=== PATIENT | female | born 1940 | race Caucasian/White ===

== ENCOUNTER 2019-06-17 14:33 | Emergency (ER) | payer MEDICARE, MEDICAID ==
[~2019-06-17] VITALS: Ht 170 cm; Wt 88.7 kg
[~2019-06-17 14:33] MED LIST: AC325T PO; ACET-461 PO; ALPR0.254 PO; ALPR0.5T72; AML2.5T PO; BPR150TCR PO; BUPR200T PO; BUPR200T2 PO; CALC-656 PO; CALC-80; CALCIUM 600MG PO; CIPR500T4 PO; CITALOPRAM HBR; CLCX200C; CYAN100053 IJ; CYAN100053 IM; DARI15TA4; EST45C VG; FOLI1TAB24 PO; FRS325T; GENT5DRO3 OD; HYDR-3714 PO; KCL20TCR PO; LACT1CAP62 PO; LEVO25TA3 PO; LEVO75TA6 PO; LISI20TA; LOSA25TA15 PO; LOVA10TA; Losartan Potassium PO; MELO15TA14; METH10TA12 PO; METO-333 PO; METO25TA PO; METO25TA2 PO; MIRT15TA6 PO; MIRT30TA6 PO; NF-LOVAZAC; NITR100C PO; OMEG1CAP PO; OMEP1CAP10; OMEP20CA12 PO; OMEP20TA2 PO; PNT40TEC PO; POTA10CA16; PRV20T PO; QTP25T PO; QUET25TA33 PO; QUET50TA21 PO; RIVA1PAT TOP; SCR1T1; SCR1T1 PO; SIMV10TA3 PO; SIMV20TA3 PO; SUCR1TAB PO; TRAM50TA2; TRIM100T7 PO; TRZ100T PO; ZOLP10TA
--- NOTE | 2019-06-17 15:01 | ED General ---
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 REPORTS BUMPED INTO STAFF AND FELL. STAFF REPORT POLICY TO HAVE HER CHECKED Nursing Sepsis Screen: No Definite Risk History of Present Illness Date Seen by Provider: Jun 17, 2019 Time Seen by Provider: 14:50 Initial Comments 78-year-old female is a resident at [facility], staff report that she ran into an employee, causing her to fall. She was not a hard impact. She did however hit a walker and possibly the wall with her head. She has a history of dementia. The fall was witnessed and there was no loss of consciousness. She has no complaints at this time, no areas of pain or tenderness, and is ambulatory with a steady gait. She is hard of hearing. The staff does report this is her second fall in the last 2 weeks, and a requesting a UA to check for urinary tract infection. Timing/Duration: 1-3 Hours Associated Systoms: Denies Symptoms Allergies and Home Medications Allergies Coded Allergies: codeine (Unverified Allergy, Mild, 10/05/08) Sulfa (Sulfonamide Antibiotics) (Unverified Allergy, Unknown, 01/16/14) Home Medications Acetaminophen 500 Mg Tablet, 500-1,000 MG PO EVERY 4-6 HOURS PRN for PAIN, (Reported) Bupropion Hcl 200 Mg Tablet.sa, 200 MG PO BID, (Reported) Ciprofloxacin HCl 500 Mg Tablet, 500 MG PO BID Prescribed by: ANJU REID on 06/17/19 1602 Cyanocobalamin 1,000 Mcg/Ml Vial, 1,000 MCG IM MONTHLY, (Reported) Estrogens Conjugated 45 Gm Cr, 1 APPFUL VG MON, WED, FRI, (Reported) Lactobacillus Acidophilus 1 Each Capsule, 1 CAP PO DAILY, (Reported) Levothyroxine Sodium 75 Mcg Tablet, 75 MCG PO DAILY, (Reported) Losartan Potassium 25 Mg Tablet, 25 MG PO HS, (Reported) Metoprolol Tartrate 25 Mg Tablet, 37.5 MG PO 00, 1999, (Reported) TAKES 1 & 1/2 (25MG) TABLET TWICE DAILY Mirtazapine 30 Mg Tablet, 30 MG PO HS, (Reported) Nitrofurantoin Macrocrystal 100 Mg Capsule, 100 MG PO DAILY, (Reported) Pantoprazole Sodium 40 Mg Tablet.dr, 1 TAB PO DAILY Prescribed by: ELOY ALVAREZ on 01/28/14 1158 Potassium Chloride 20 Meq Tab.prt.sr, 20 MEQ PO DAILY, (Reported) Quetiapine Fumarate 50 Mg Tablet, 50 MG PO HS, (Reported) Quetiapine Fumarate 25 Mg Tablet, 37.5 MG PO 0800, 1400, (Reported) TAKES 1 & 1/2 (25MG) TABLET TWICE DAILY AT 0800 AND 1400 Rivastigmine Tartrate 4.6 Mg Patch, 4.6 MG TOP DAILY, (Reported) Simvastatin 10 Mg Tablet, 10 MG PO HS, (Reported) Sucralfate 1 Gm Tab, 1 GM PO QID Prescribed by: ELOY ALVAREZ on 01/28/14 1158 [Calcium 600MG] , 600 MG PO DAILY, (Reported) Patient Home Medication List Home Medication List Reviewed: Yes Review of Systems Review of Systems Constitutional: no symptoms reported, see HPI Musculoskeletal: no symptoms reported, see HPI All Other Systems Reviewed Negative Unless Noted: Yes Past Hgctuoo-Lkbuvl-Xmbxtv Hx Past Med/Social Hx: Reviewed Nursing Past Med/Soc Hx Patient Social History Alcohol Use: Denies Use Recreational Drug Use: Yes (tobacco) Smoking Status: Former Smoker 2nd Hand Smoke Exposure: No Recent Foreign Travel: No Contact w/Someone Who Travel: No Recent Infectious Disease Expo: No Immunizations Up To Date Tetanus Booster (TDap): Unknown Date of Influenza Vaccine: May 17, 2013 Past Medical History Surgeries: Yes (EGD/COLONOSCOPIES, BACK SURG;splenectomy) Respiratory: No Cardiac: Yes Neurological: No Reproductive Disorders: Yes Female Reproductive Disorders: Denies Sexually Transmitted Disease: No HIV/AIDS: No Bladder Infection Gastrointestinal: Yes Colitis, Gastroesophageal Reflux, Gall Bladder Disease Musculoskeletal: Yes (CHRONIC GENERALIZED PAIN) Arthritis, Back Injury, Chronic Back Pain Endocrine: Yes Hypothyroidsim Loss of Vision: Bilateral Hearing Impairment: Hard of Hearing Cancer: No Psychosocial: Yes Sleep Difficulties, Anxiety, Bipolar, Depression Integumentary: No Blood Disorders: No Adverse Reaction/Blood Tranf: No Family Medical History Alcoholism 19 FATHER G8 BROTHER CANC 19 MOTHER FH: cancer Hypertension Physical Exam Vital Signs Vital Signs - First Documented 06/17/19 14:39 Temp 36.9 Pulse 93 Resp 18 B/P (MAP) 141/79 (99) Pulse Ox 97 Capillary Refill : NONE Height, Weight, BMI Height: 5'4.00" Weight: 166lbs. 9.0oz. 75.659386kd; 30.00 BMI Method: General Appearance: No Apparent Distress, WD/WN Eyes: Bilateral Eye Normal Inspection, Bilateral Eye PERRL, Bilateral Eye EOMI HEENT: PERRL/EOMI, TMs Normal, Normal ENT Inspection, Pharynx Normal, Other (head is normocephalic with no areas of tenderness, swelling, abrasions or lacerations.) Neck: Full Range of Motion, Normal Inspection, Non Tender, Supple Respiratory: Chest Non Tender, Lungs Clear, Normal Breath Sounds Cardiovascular: Regular Rate, Rhythm, No Edema, No Murmur, Normal Peripheral Pulses Genital/Rectal: Other (steady gait) Back: Normal Inspection, No CVA Tenderness, No Vertebral Tenderness Extremity: Normal Capillary Refill, Normal Inspection, Normal Range of Motion Neurologic/Psychiatric: Alert, Oriented x3, No Motor/Sensory Deficits, Normal Mood/Affect Skin: Normal Color, Warm/Dry Progress/Results/Core Measures Suspected Sepsis Recent Fever Within 48 Hours: No Infection Criteria Present: None New/Unexplained Altered Menta: No Sepsis Screen: No Definite Risk SIRS Temperature: Pulse: 93 Respiratory Rate: 18 Blood Pressure 141 /79 Mean: 99 Results/Orders Lab Results Laboratory Tests Test 06/17/19 15:20 Range/Units Urine Color YELLOW Urine Clarity SL CLOUDY Urine pH 6.0 5-9 Urine Specific [place] >=1.030 1.016-1.022 Urine Protein TRACE NEGATIVE Urine Glucose (UA) NEGATIVE NEGATIVE Urine Ketones NEGATIVE NEGATIVE Urine Nitrite POSITIVE NEGATIVE Urine Bilirubin NEGATIVE NEGATIVE Urine Urobilinogen 0.2 < = 1.0 MG/DL Urine Leukocyte Esterase 2+ H NEGATIVE Urine RBC (Auto) 3+ H NEGATIVE Urine RBC 5-10 H /HPF Urine WBC >100 H /HPF Urine Crystals NONE /LPF Urine Bacteria MODERATE H /HPF Urine Casts NONE /LPF Urine Mucus NEGATIVE /LPF Urine Culture Indicated YES My Orders Orders - ANJU REID Ua Culture If Indicated (06/17/19 15:02) Urine Culture (06/17/19 15:20) Vital Signs/I&O 06/17/19 06/17/19 14:39 16:06 Temp 36.9 36.9 Pulse 93 93 Resp 18 18 B/P (MAP) 141/79 (99) 141/79 (99) Pulse Ox 97 97 Capillary Refill : NONE Blood Pressure Mean: 99 Progress Note : Time: 14:50 Progress Note Patient seen and evaluated, no indication for diagnostic imaging at this time. We'll obtain a UA. Denies need for pain medication. 1600 UA results reviewed with the patient and her caregiver. Discharge instructions and return precautions reviewed. Departure Impression Primary Impression: Fall Qualified Codes: W19.XXXA - Unspecified fall, initial encounter Additional Impression: UTI (urinary tract infection) Qualified Codes: N30.01 - Acute cystitis with hematuria Disposition: HOME, SELF-CARE Condition: Improved Departure-Patient Inst. Decision time for Depature: 16:00 Referrals: SUSAN MOTLEY MD (PCP/Family) Primary Care Physician Patient Instructions: Preventing Falls in the Older Adult, Urinary Tract Infection, Adult (DC) Add. Discharge Instructions: Increase water intake, 16 ounces every 2 hours while awake. Take prescribed antibiotics as directed. Follow-up with your primary care provider if symptoms are not improving or worsen. Drink 1 cup of cranberry juice or eat 1 cup of fresh blueberries daily. Return to emergency department for new, urgent health care needs. All discharge instructions reviewed with patient and/or family. Voiced understanding. Scripts Ciprofloxacin HCl (Ciprofloxacin HCl) 500 Mg Tablet 500 MG PO BID, #10 TAB 0 Refills Prov: ANJU REID 06/17/19 Copy Copies To 1: SUASN MOTLEY MD, AMY ARNP Jun 17, 2019 15:01
[2019-06-17 15:30] LABS: BILIRUBIN,URINE NEGATIVE (NEGATIVE); CLARITY,URINE SL CLOUDY; COLOR,URINE YELLOW; GLUCOSE, URINE (UA) NEGATIVE (NEGATIVE); KETONES,URINE NEGATIVE (NEGATIVE); LEUKOCYTE ESTERASE ,URINE 2+ (NEGATIVE); NITRITE,URINE POSITIVE (NEGATIVE); PROTEIN,URINE TRACE (NEGATIVE)
[2019-06-17 15:56] LABS: WBC,URINE >100 /HPF
[2019-06-17 15:57] LABS: BACTERIA,URINE MODERATE /HPF
[2019-06-17] MEDS ORDERED: CIPR500T4 PO (16:02)
[2019-06-17 16:06] VITALS: BP 141/79
[2019-06-21] MEDS ORDERED: CALC600T12 PO (11:08)
[2019-06-21] MEDS ORDERED: LOSA25TA41 PO (11:08)
[2019-06-21] MEDS ORDERED: MEMA28CA PO (11:08)
[2019-06-21] MEDS ORDERED: OMEP20CA13 PO (11:08)
[2019-06-21] MEDS ORDERED: SUCR1TAB36 PO (11:08)
[2019-06-21] MEDS ORDERED: ACET-168 PO (11:08)
[2019-06-21] MEDS ORDERED: CHOL5000 PO (11:08)
[2019-06-21] MEDS ORDERED: SIMV10TA3 PO (11:08)
[2019-06-21] MEDS ORDERED: TRIM100T PO (11:08)
[2019-06-21] MEDS ORDERED: QUET25TA73 PO ×2 (11:08)
[2019-06-21] MEDS ORDERED: MIRT15TA6 PO (11:08)
[2019-06-21] MEDS ORDERED: FLUV100T3 PO (11:08)
[2019-06-21] MEDS ORDERED: LEVO88TA54 PO (11:08)
[2019-06-21] MEDS ORDERED: METO-333 PO (11:08)
[2019-06-21] MEDS ORDERED: CNC1KV IM (11:08)
[2019-06-21] MEDS ORDERED: ACID1TAB PO (11:08)
[2019-06-21] MEDS ORDERED: CYAN100015 SL (11:08)
[2019-06-21] MEDS ORDERED: BUPR200T2 PO (11:08)
[2019-06-21] MEDS ORDERED: CIPR-225 PO (11:08)
[2019-06-21] MEDS ORDERED: POTA20TA15 PO (11:08)
[2019-06-21] MEDS ORDERED: FLUV50TA3 PO (11:08)
[2019-06-22] MEDS ORDERED: ACID1TAB PO (08:57)
[2019-06-22] MEDS ORDERED: TRIM100T PO (08:57)
[2019-06-22] MEDS ORDERED: AMOX-358 PO (08:57)
== END 2019-06-17 16:06 | disposition home or self-care (01) ==
LOC: EDUNIT# 14:33 → ER 14:34
DX: N39.0 Urinary tract infection, site not specified (principal); F03.90 Unspecified dementia, unspecified severity, without behavioral disturbance, psychotic disturbance, mood disturbance, and anxiety; K21.9 Gastro-esophageal reflux disease without esophagitis; E03.9 Hypothyroidism, unspecified; F41.9 Anxiety disorder, unspecified; F31.9 Bipolar disorder, unspecified; Z87.891 Personal history of nicotine dependence; Z88.5 Allergy status to narcotic agent; Z88.2 Allergy status to sulfonamides; Z82.49 Family history of ischemic heart disease and other diseases of the circulatory system; W01.10XA Fall on same level from slipping, tripping and stumbling with subsequent striking against unspecified object, initial encounter
CPT/HCPCS: 81000; 87077; 87088; 87186; 99282

== ENCOUNTER 2019-07-22 13:07 | Emergency (ER) | payer MEDICARE, MEDICAID ==
[~2019-07-22] VITALS: Ht 165 cm; Wt 80.0 kg
[~2019-07-22 13:07] MED LIST changes: +ACET-168 PO; +ACID1TAB PO; +AMOX-358 PO; +CALC600T12 PO; +CHOL5000 PO; +CIPR-225 PO; +CNC1KV IM; +CYAN100015 SL; +FLUV100T3 PO; +FLUV50TA3 PO; +LEVO88TA54 PO; +LOSA25TA41 PO; +MEMA28CA PO; +OMEP-280 PO; +POTA20TA15 PO; +QUET25TA73 PO; +SIMV10TA26 PO; +SUCR1TAB36 PO; +TRIM100T PO
[2019-07-22 13:27] LABS: BASOPHILS % (AUTO) 0 % (0-10); EOSINOPHILS # (AUTO) 0.1 10^3/uL (0.0-0.3); EOSINOPHILS % (AUTO) 2 % (0-10); HEMATOCRIT 38 % (35-52); HEMOGLOBIN 11.4 G/DL (11.5-16.0); LYMPHOCYTES # (AUTO) 1.4 X 10^3 (1.0-4.0); LYMPHOCYTES % (AUTO) 19 % (12-44); MEAN CORPUSCULAR HEMOGLOBIN 27 PG (25-34); MEAN CORPUSCULAR HGB CONC 30 G/DL (32-36); MEAN CORPUSCULAR VOLUME 88 FL (80-99); MEAN PLATELET VOLUME 9.8 FL (7.4-10.4); MONOCYTES # (AUTO) 0.4 X 10^3 (0.0-1.0); MONOCYTES % (AUTO) 6 % (0-12); NEUTROPHILS # (AUTO) 5.5 X 10^3 (1.8-7.8); NEUTROPHILS % (AUTO) 74 % (42-75); PLATELET COUNT 260 10^3/uL (130-400); RED CELL DISTRIBUTION WIDTH 15.2 % (10.0-14.5); WHITE BLOOD COUNT 7.5 10^3/uL (4.3-11.0)
--- NOTE | 2019-07-22 13:28 | ED Trauma-Multisystem ---
General Chief Complaint: Trauma-Non Activation Stated Complaint: FALL Source of Information: Patient, EMS Exam Limitations: No Limitations History of Present Illness Date Seen by Provider: Jul 22, 2019 Time Seen by Provider: 13:14 Initial Comments 79-year-old female who was brought to the emergency room by [facility] with reported increased falls over the past 5 days and increased confusion. The patient has a baseline of dementia which is the cause of her needing penitentiary care 24 7. She is altered at baseline. She is alert to person and place on arrival to the emergency room. She denies any pain from her falls. snf staff reports that she was started on Cefdnir a few days ago for urinary tract infection. She has some dried blood on her report lips staff is concerned that she struck her head with her fall this morning. She also has a large hematoma to her right hip area from a recent fall and abrasions to the dorsal surface of her left hand. Loss of Consciousness: Unsure Associated Symptoms (Fall): Denies Symptoms Allergies and Home Medications Allergies Coded Allergies: codeine (Unverified Allergy, Mild, 10/05/08) Sulfa (Sulfonamide Antibiotics) (Unverified Allergy, Unknown, 01/16/14) Home Medications Acetaminophen 500 Mg Tablet, 500-1,000 MG PO EVERY 4-6 HOURS PRN for PAIN-MILD (1-4), (Reported) Amoxicillin/Potassium Clav 1 Each Tablet, 1 EACH PO BID Prescribed by: SUSAN LANGSTON on 06/22/19 0857 Bupropion HCl 200 Mg Tablet.er, 200 MG PO BID, (Reported) Calcium Carbonate 600 Mg Tablet, 600 MG PO DAILY, (Reported) Cholecalciferol (Vitamin D3) 5,000 Unit Capsule, 5,000 UNIT PO DAILY, (Reported) Cyanocobalamin 1,000 Mcg/Ml Inj, 1,000 MCG IM MONTHLY ON THE , (Reported) Cyanocobalamin (Vitamin B-12) 1,000 Mcg Tab.subl, 1,000 MCG SL DAILY, (Reported) Fluvoxamine Maleate 100 Mg Tablet, 100 MG PO DAILY, (Reported) Fluvoxamine Maleate 50 Mg Tablet, 50 MG PO HS, (Reported) L. Acidophilus/Bulgaricus 1 Each Tablet, 1 TAB PO UD THREE TIMES DAILY X 1 WEEK THEN DAILY THEREAFTER Prescribed by: SUSAN LANGSTON on 06/22/19 0857 Levothyroxine Sodium 88 Mcg Tablet, 88 MCG PO DAILY, (Reported) Losartan Potassium 25 Mg Tablet, 25 MG PO HS, (Reported) Memantine HCl 28 Mg Cap.spr.24, 28 MG PO DAILY, (Reported) Metoprolol Tartrate 25 Mg Tablet, 37.5 MG PO BID, (Reported) TAKES 1 & 1/2 (25MG) TABLETS Mirtazapine 15 Mg Tablet, 15 MG PO HS, (Reported) Omeprazole 20 Mg Capsule.dr, 20 MG PO HS, (Reported) Potassium Chloride 20 Meq Tab.er.prt, 20 MEQ PO DAILY, (Reported) Quetiapine Fumarate 25 Mg Tablet, 25 MG PO HS, (Reported) Quetiapine Fumarate 25 Mg Tablet, 12.5 MG PO 0800,1400, (Reported) TAKES 1/2 (25MG) TABLET Simvastatin 10 Mg Tablet, 10 MG PO HS, (Reported) Sucralfate 1 Gm Tablet, 1 GM PO UD PRN for STOMACH UPSET, (Reported) Trimethoprim 100 Mg Tablet, 100 MG PO DAILY DO NOT RESTART UNTIL 06/28/2019 Prescribed by: SUSAN LANGSTON on 06/22/19 0857 Patient Home Medication List Home Medication List Reviewed: Yes Review of Systems Review of Systems Constitutional: see HPI; No chills, No fever Musculoskeletal: see HPI, other (recent fall) Psychiatric/Neurological: See HPI, Other (increased confusion) All Other Systems Reviewed Negative Unless Noted: Yes Past Leojtvq-Pdmidk-Impzme Hx Past Med/Social Hx: Reviewed Nursing Past Med/Soc Hx Patient Social History Type Used: Cigarettes 2nd Hand Smoke Exposure: No Recent Hopitalizations: No Immunizations Up To Date Tetanus Booster (TDap): Unknown Date of Influenza Vaccine: Mar 16, 2019 Seasonal Allergies Seasonal Allergies: Yes Past Medical History Surgeries: Yes (EGD/COLONOSCOPIES, BACK SURG;splenectomy) Breast, Gallbladder, Hysterectomy, Orthopedic Respiratory: No Cardiac: Yes Neurological: No Reproductive Disorders: Yes Female Reproductive Disorders: Denies Sexually Transmitted Disease: No HIV/AIDS: No Bladder Infection Gastrointestinal: Yes Colitis, Gastroesophageal Reflux, Gall Bladder Disease Musculoskeletal: Yes (CHRONIC GENERALIZED PAIN) Arthritis, Back Injury, Chronic Back Pain Endocrine: Yes Hypothyroidsim Loss of Vision: Bilateral Hearing Impairment: Hard of Hearing Cancer: No Psychosocial: Yes Sleep Difficulties, Anxiety, Bipolar, Depression Integumentary: No Blood Disorders: No Adverse Reaction/Blood Tranf: No Family Medical History Reviewed Nursing Family Hx Alcoholism 19 FATHER G8 BROTHER CANC 19 MOTHER FH: cancer Cancer, Hypertension Physical Exam Vital Signs Vital Signs - First Documented 07/22/19 13:26 Temp 37.1 Pulse 84 Resp 20 B/P (MAP) 144/78 (100) Pulse Ox 94 Height, Weight, BMI Height: 5'4.00" Weight: 166lbs. 9.0oz. 75.888004sp; 32.32 BMI Method: General Appearance: No Apparent Distress, WD/WN Head: Ecchymosis (large area of ecchymosis and hematoma to her right hip.), Other (abrasions to the dorsal surface of her left hand) Ears, Nose, Throat: No Evidence of ENT Injury, No Dental Injury, Other (hard of hearing) Neck: Full Range of Motion, Normal Inspection, Non Tender, Supple Cardiovascular: Regular Rate, Rhythm, No Edema, No Gallop, No JVD, No Murmur, Normal Peripheral Pulses Respiratory: Chest Non Tender, Lungs Clear, Normal Breath Sounds, No Accessory Muscle Use, No Respiratory Distress Gastrointestinal: Normal Bowel Sounds, No Organomegaly, No Pulsatile Mass, Non Tender, Soft Extremity: Normal Capillary Refill Neurologic/Psychiatric: Alert, Normal Mood/Affect, Other (baseline of dementia) Skin: Normal Color, Warm/Dry [place] Coma Score Best Eye Response (Abebe): (4) Open Spontaneously Best Verbal Response (Abebe): (5) Oriented Best Motor Response (Abebe): (6) Obeys Commands Progress/Results/Core Measures Results/Orders Lab Results Laboratory Tests Test 07/22/19 13:09 07/22/19 13:15 07/22/19 15:35 Range/Units Lab Scanned Report Referred Lab Report [id number] White Blood Count 7.5 4.3-11.0 10^3/uL Red Blood Count 4.30 L 4.35-5.85 10^6/uL Hemoglobin 11.4 L 11.5-16.0 G/DL Hematocrit 38 35-52 % Mean Corpuscular Volume 88 80-99 FL Mean Corpuscular Hemoglobin 27 25-34 PG Mean Corpuscular Hemoglobin Concent 30 L 32-36 G/DL Red Cell Distribution Width 15.2 H 10.0-14.5 % Platelet Count 260 130-400 10^3/uL Mean Platelet Volume 9.8 7.4-10.4 FL Neutrophils (%) (Auto) 74 42-75 % Lymphocytes (%) (Auto) 19 12-44 % Monocytes (%) (Auto) 6 0-12 % Eosinophils (%) (Auto) 2 0-10 % Basophils (%) (Auto) 0 0-10 % Neutrophils # (Auto) 5.5 1.8-7.8 X 10^3 Lymphocytes # (Auto) 1.4 1.0-4.0 X 10^3 Monocytes # (Auto) 0.4 0.0-1.0 X 10^3 Eosinophils # (Auto) 0.1 0.0-0.3 10^3/uL Basophils # (Auto) 0.0 0.0-0.1 10^3/uL Sodium Level 142 135-145 MMOL/L Potassium Level 5.0 3.6-5.0 MMOL/L Chloride Level 110 H 98-107 MMOL/L Carbon Dioxide Level 23 21-32 MMOL/L Anion Gap 9 5-14 MMOL/L Blood Urea Nitrogen 31 H 7-18 MG/DL Creatinine 2.24 H 0.60-1.30 MG/DL Estimat Glomerular Filtration Rate 21 BUN/Creatinine Ratio 14 Glucose Level 123 H 70-105 MG/DL Calcium Level 9.3 8.5-10.1 MG/DL Corrected Calcium 9.5 8.5-10.1 MG/DL Total Bilirubin 0.5 0.1-1.0 MG/DL Aspartate Amino Transf (AST/SGOT) 11 5-34 U/L Alanine Aminotransferase (ALT/SGPT) 10 0-55 U/L Alkaline Phosphatase 132 40-136 U/L Total Protein 7.0 6.4-8.2 GM/DL Albumin 3.8 3.2-4.5 GM/DL Urine Color YELLOW Urine Clarity CLOUDY Urine pH 5.5 5-9 Urine Specific [place] >=1.030 1.016-1.022 Urine Protein NEGATIVE NEGATIVE Urine Glucose (UA) NEGATIVE NEGATIVE Urine Ketones NEGATIVE NEGATIVE Urine Nitrite NEGATIVE NEGATIVE Urine Bilirubin NEGATIVE NEGATIVE Urine Urobilinogen 0.2 < = 1.0 MG/DL Urine Leukocyte Esterase 2+ H NEGATIVE Urine RBC (Auto) TRACE-I NEGATIVE Urine RBC 2-5 H /HPF Urine WBC TNTC H /HPF Urine Squamous Epithelial Cells 10-25 H /HPF Urine Crystals NONE /LPF Urine Bacteria NEGATIVE /HPF Urine Casts NONE /LPF Urine Mucus NEGATIVE /LPF Urine Culture Indicated YES Micro Results Microbiology 07/22/19 Urine Culture - Final, Complete Gram Pos Mixed Bacterial Maite Corynebacterium JK(Jeikeium) My Orders Orders - MARILYN BAY Ct Head/Cervical Spine Wo (07/22/19 13:12) Chest 1 View, Ap/Pa Only (07/22/19 13:12) Pelvis With Right Hip 2-3views (07/22/19 13:12) Comprehensive Metabolic Panel (07/22/19 13:12) Ua Culture If Indicated (07/22/19 13:12) Ed Iv/Invasive Line Start (07/22/19 13:12) Cbc With Automated Diff (07/22/19 13:12) Ns Iv 1000 Ml (Sodium Chloride 0.9%) (07/22/19 15:00) Ct Chest Wo (07/22/19 16:14) Urine Culture (07/22/19 15:35) Vital Signs/I&O 07/22/19 07/22/19 13:26 17:55 Temp 37.1 37.1 Pulse 84 84 Resp 20 20 B/P (MAP) 144/78 (100) 144/78 (100) Pulse Ox 94 94 Progress Progress Note : Time: 17:17 Progress Note I have seen and evaluated the patient. Findings were discussed with patient family and penitentiary staff via phone. Patient has follow up with Dr. Liu tons office this week. Departure Impression Primary Impression: Advancing dementia Disposition: 01 HOME, SELF-CARE Condition: Stable/Unchanged Departure-Patient Inst. Decision time for Depature: 17:17 Referrals: SUSAN LANGSTON MD (PCP/Family) Primary Care Physician Patient Instructions: Dementia (DC) Add. Discharge Instructions: Continue medications as previously prescribed. Follow-up with Dr. Langston's office within 1 week for recheck. Return back to the emergency room for worsening symptoms or concerns as needed. All discharge instructions reviewed w [facility] patient and/or family. Voiced understanding. AMRILYN BAY Jul 22, 2019 13:28
[2019-07-22 13:49] LABS: ALBUMIN 3.8 GM/DL (3.2-4.5); BILIRUBIN,TOTAL 0.5 MG/DL (0.1-1.0); CALCIUM 9.3 MG/DL (8.5-10.1); CREATININE SERUM 2.24 MG/DL (0.60-1.30)
--- NOTE | 2019-07-22 14:39 | Diagnostic Imaging Report ---
PROCEDURE: CT head and CT cervical spine without contrast. TECHNIQUE: Multiple contiguous axial images were obtained through the brain and cervical spine without the use of intravenous contrast. Sagittal and coronal reformations through the cervical spine were then performed. Auto Exposure Controls were utilized during the CT exam to meet ALARA standards for radiation dose reduction. INDICATION: Unwitnessed fall. Scalp contusion. COMPARISON: 06/21/2019. FINDINGS: CT head: No large acute territorial ischemia, mass, or hemorrhage. No midline shift or mass effect. Decreased attenuation is seen in the periventricular and subcortical white matter. The ventricles and cortical sulci are prominent. The basilar cisterns are patent and unremarkable. The calvarium is intact. The visualized paranasal sinuses are clear. CT cervical spine: No acute fracture or dislocation is seen in the cervical spine. No focal osseous lesions. Vertebral body heights are well-maintained. The craniocervical junction is well-maintained. Hwumkffv-el-kxkfva degenerative changes are seen in the cervical spine with disc osteophyte complexes and uncovertebral arthropathy. Soft tissues of the neck are unremarkable. IMPRESSION: 1. No hemorrhage or focal intra-axial mass. No CT evidence of large acute territorial ischemia. 2. No acute fracture or dislocation in the cervical spine. 3. Chronic microvascular disease with generalized parenchymal volume loss. 4. Xecyicbk-wq-svzwkg degenerative changes in the cervical spine. Dictated by: Dictated on workstation # [id number]
--- NOTE | 2019-07-22 14:45 | Diagnostic Imaging Report ---
INDICATION: Unwitnessed fall earlier in the day. TECHNIQUE: AP pelvis along with 2 views right hip, 2:15 PM CORRELATION STUDY: None FINDINGS: The pelvis demonstrates no evidence for acute fracture. The pectineal lines and obturator rings are maintained. Pubic symphysis and SI joints are unremarkable. Posterior L4-L5 lumbar spinal fusion hardware. Bilateral hip joints demonstrate narrowing. Mildly prominent overhanging osteophytes bilaterally. Imaging of the right hip demonstrates the bony trabecular pattern to be intact. IMPRESSION: Negative for acute abnormality about the pelvis and/or right hip. Mild moderately advanced degenerative changes of both hips are present. . Dictated by: Dictated on workstation # [id number]
[2019-07-22] MEDS ORDERED: NS IV 1000 ML 1,000 ML IV SCH (15:00)
[2019-07-22 16:02] LABS: BILIRUBIN,URINE NEGATIVE (NEGATIVE); CLARITY,URINE CLOUDY; COLOR,URINE YELLOW; GLUCOSE, URINE (UA) NEGATIVE (NEGATIVE); KETONES,URINE NEGATIVE (NEGATIVE); LEUKOCYTE ESTERASE ,URINE 2+ (NEGATIVE); NITRITE,URINE NEGATIVE (NEGATIVE); PH,URINE 5.5 (5-9); PROTEIN,URINE NEGATIVE (NEGATIVE)
[2019-07-22 16:17] LABS: BACTERIA,URINE NEGATIVE /HPF; WBC,URINE TNTC /HPF
--- NOTE | 2019-07-22 16:53 | Diagnostic Imaging Report ---
INDICATION: Unwitnessed fall this morning. TECHNIQUE: Single-view chest at 02:11 p.m. CORRELATION STUDY: 06/22/2019. FINDINGS: Heart size and pulmonary vasculature are generally stable. Mediastinal configuration along the left superior margins does appear to be slightly more prominent from prior studies. Chronic-appearing changes about the lung parenchyma. Suggestion of some reparative change with likely a subacute left lateral fifth rib fracture. IMPRESSION: 1. Suggestion of prominence about the superior mediastinum. This may very well be owing to change in position; however, possibility of underlying mediastinal pathology including associated with the aortic arch not excluded. If clinically warranted, correlation with CT imaging chest would be recommended. 2. Likely subacute left lateral fifth rib fracture. Dictated by: Dictated on workstation # [id number]
--- NOTE | 2019-07-22 17:00 | Diagnostic Imaging Report ---
EXAMINATION: CT Chest without contrast. TECHNIQUE: Multiple contiguous axial images were obtained through the chest without the use of intravenous contrast. All CT scans use one or more of the following dose optimizing techniques: automated exposure control, MA and/or KvP adjustment based on a patient size and exam type, or iterative reconstruction. HISTORY: Fall. COMPARISON: None available. FINDINGS: There is no edema or pneumonia. No pleural effusion. No pneumothorax. No suspicious nodules. There is mild dependent atelectasis in the lungs. Heart size is normal. No pericardial effusion. Aorta is normal in caliber. There is no axillary or supraclavicular lymphadenopathy. There is no mediastinal lymphadenopathy. There are moderate coronary artery calcifications. Calcified granulomas are seen in the right hilum. Calcified granulomas are seen in the liver and spleen. Gallbladder is absent. There are svhcynsn-hb-dfdysav left third, fourth, and fifth rib fractures. There is a Schmorl's node in the inferior endplate of T12. IMPRESSION: 1. Subacute chronic left third, fourth, and fifth rib fractures without evidence for acute trauma in the chest. Dictated by: Dictated on workstation # [id number]
--- NOTE | 2019-07-22 17:40 | NUR ---
[facility] NOTIFIED OF DISCHARGE. THEY WILL BE SENDING TRANSPORT.
[2019-07-22 17:55] VITALS: BP 144/78
== END 2019-07-22 18:09 | disposition home or self-care (01) ==
LOC: EDUNIT# 13:07 → ER 13:09
DX: F03.90 Unspecified dementia, unspecified severity, without behavioral disturbance, psychotic disturbance, mood disturbance, and anxiety (principal); S70.01XA Contusion of right hip, initial encounter; S60.512A Abrasion of left hand, initial encounter; F41.9 Anxiety disorder, unspecified; F31.9 Bipolar disorder, unspecified; E03.9 Hypothyroidism, unspecified; K21.9 Gastro-esophageal reflux disease without esophagitis; R40.2142 Coma scale, eyes open, spontaneous, at arrival to emergency department; R40.2252 Coma scale, best verbal response, oriented, at arrival to emergency department; R40.2362 Coma scale, best motor response, obeys commands, at arrival to emergency department; Z88.5 Allergy status to narcotic agent; Z88.2 Allergy status to sulfonamides; Z82.49 Family history of ischemic heart disease and other diseases of the circulatory system; W19.XXXA Unspecified fall, initial encounter
CPT/HCPCS: 36415; 70450; 71045; 71250; 72125; 80053; 81000; 85025; 87088

== ENCOUNTER 2019-12-20 15:11 | Emergency (ER) | payer MEDICARE, MEDICAID ==
[~2019-12-20] VITALS: Ht 170 cm; Wt 82.0 kg
[~2019-12-20 15:11] MED LIST changes: -OMEP-280 PO; +OMEP20CA18 PO
--- NOTE | 2019-12-20 15:24 | ED General ---
General Stated Complaint: SYNCOPE EPISODE Source of Information: Patient Exam Limitations: No Limitations History of Present Illness Date Seen by Provider: Dec 20, 2019 Time Seen by Provider: 15:21 Initial Comments To ER by EMS from [facility] here in [place] with reports of an unresponsive episode at the halfway today lasting about 10 minutes. Upon EMS arrival she was alert and oriented with normal vital signs. On arrival to ER she states she doesn't have any pain nausea vomiting shortness of breath. She states she just feels "blah..up here" and points to her head. She reports that she is depressed and has been depressed for 20 years. She is not interested in going inpatient for any treatment for this. She is not homicidal or suicidal Timing/Duration: 1-3 Hours Severity: Moderate Associated Systoms: Denies Symptoms Allergies and Home Medications Allergies Coded Allergies: codeine (Unverified Allergy, Mild, 10/05/08) Sulfa (Sulfonamide Antibiotics) (Unverified Allergy, Unknown, 01/16/14) Home Medications Acetaminophen 500 Mg Tablet, 500-1,000 MG PO EVERY 4-6 HOURS PRN for PAIN-MILD (1-4), (Reported) Amoxicillin/Potassium Clav 1 Each Tablet, 1 EACH PO BID Prescribed by: SUSAN LANGSTON on 06/22/19 08 Bupropion HCl 200 Mg Tablet.er, 200 MG PO BID, (Reported) Calcium Carbonate 600 Mg Tablet, 600 MG PO DAILY, (Reported) Cefuroxime Axetil 500 Mg Tablet, 500 MG PO BID Prescribed by: ROSSI SINGLETON on 12/20/19 1553 Cholecalciferol (Vitamin D3) 5,000 Unit Capsule, 5,000 UNIT PO DAILY, (Reported) Cyanocobalamin 1,000 Mcg/Ml Inj, 1,000 MCG IM MONTHLY ON THE , (Reported) Cyanocobalamin (Vitamin B-12) 1,000 Mcg Tab.subl, 1,000 MCG SL DAILY, (Reported) Fluvoxamine Maleate 100 Mg Tablet, 100 MG PO DAILY, (Reported) Fluvoxamine Maleate 50 Mg Tablet, 50 MG PO HS, (Reported) L. Acidophilus/Bulgaricus 1 Each Tablet, 1 TAB PO UD THREE TIMES DAILY X 1 WEEK THEN DAILY THEREAFTER Prescribed by: SUSAN LANGSTON on 06/22/19 0857 Levothyroxine Sodium 88 Mcg Tablet, 88 MCG PO DAILY, (Reported) Losartan Potassium 25 Mg Tablet, 25 MG PO HS, (Reported) Memantine HCl 28 Mg Cap.spr.24, 28 MG PO DAILY, (Reported) Metoprolol Tartrate 25 Mg Tablet, 37.5 MG PO BID, (Reported) TAKES 1 & 1/2 (25MG) TABLETS Mirtazapine 15 Mg Tablet, 15 MG PO HS, (Reported) Omeprazole 20 Mg Capsule.dr, 20 MG PO HS, (Reported) Potassium Chloride 20 Meq Tab.er.prt, 20 MEQ PO DAILY, (Reported) Quetiapine Fumarate 25 Mg Tablet, 25 MG PO HS, (Reported) Quetiapine Fumarate 25 Mg Tablet, 12.5 MG PO 0800,1400, (Reported) TAKES 1/2 (25MG) TABLET Simvastatin 10 Mg Tablet, 10 MG PO HS, (Reported) Sucralfate 1 Gm Tablet, 1 GM PO UD PRN for STOMACH UPSET, (Reported) Trimethoprim 100 Mg Tablet, 100 MG PO DAILY DO NOT RESTART UNTIL 06/28/2019 Prescribed by: SUSAN LANGSTON on 06/22/19 0857 Patient Home Medication List Home Medication List Reviewed: Yes Review of Systems Review of Systems Constitutional: see HPI EENTM: see HPI Respiratory: no symptoms reported Cardiovascular: no symptoms reported Genitourinary: no symptoms reported Musculoskeletal: no symptoms reported Skin: no symptoms reported Psychiatric/Neurological: See HPI, Depressed Hematologic/Lymphatic: No Symptoms Reported Past Tmjlsmm-Camqts-Hzspsc Hx Patient Social History Type Used: Cigarettes 2nd Hand Smoke Exposure: No Recent Foreign Travel: No Contact w/Someone Who Travel: No Recent Hopitalizations: No Immunizations Up To Date Tetanus Booster (TDap): Unknown Date of Influenza Vaccine: Mar 16, 2019 Seasonal Allergies Seasonal Allergies: Yes Past Medical History Surgeries: Yes (EGD/COLONOSCOPIES, BACK SURG;splenectomy) Breast, Gallbladder, Hysterectomy, Orthopedic Respiratory: No Cardiac: Yes Neurological: No Reproductive Disorders: Yes Female Reproductive Disorders: Denies Sexually Transmitted Disease: No HIV/AIDS: No Bladder Infection Gastrointestinal: Yes Colitis, Gastroesophageal Reflux, Gall Bladder Disease Musculoskeletal: Yes (CHRONIC GENERALIZED PAIN) Arthritis, Back Injury, Chronic Back Pain Endocrine: Yes Hypothyroidsim Loss of Vision: Bilateral Hearing Impairment: Hard of Hearing Cancer: No Psychosocial: Yes Sleep Difficulties, Anxiety, Bipolar, Depression Integumentary: No Blood Disorders: No Adverse Reaction/Blood Tranf: No Family Medical History Alcoholism 19 FATHER G8 BROTHER CANC 19 MOTHER FH: cancer Cancer, Hypertension Physical Exam Vital Signs Vital Signs - First Documented 12/20/19 15:15 Temp 36.7 Pulse 83 Resp 18 B/P (MAP) 158/77 (104) Capillary Refill : Height, Weight, BMI Height: 5'4.00" Weight: 166lbs. 9.0oz. 75.719584ib; 29.00 BMI Method: General Appearance: No Apparent Distress, WD/WN, Other (alert and oriented, fl at affect) Eyes: Bilateral Eye Normal Inspection, Bilateral Eye PERRL HEENT: PERRL/EOMI, TMs Normal Respiratory: No Accessory Muscle Use, No Respiratory Distress Cardiovascular: Regular Rate, Rhythm, Normal Peripheral Pulses Gastrointestinal: Non Tender, Soft Neurologic/Psychiatric: Alert, Oriented x3 Skin: Normal Color, Warm/Dry Progress/Results/Core Measures Suspected Sepsis SIRS Temperature: Pulse: Respiratory Rate: Laboratory Tests 12/20/19 15:15: White Blood Count 9.2 Blood Pressure / Mean: Laboratory Tests 12/20/19 15:15: Creatinine 2.93H, Platelet Count 235, Total Bilirubin 0.2 Results/Orders Lab Results Laboratory Tests Test 12/20/19 15:15 12/20/19 15:20 Range/Units White Blood Count 9.2 4.3-11.0 10^3/uL Red Blood Count 4.67 4.35-5.85 10^6/uL Hemoglobin 12.5 11.5-16.0 G/DL Hematocrit 41 35-52 % Mean Corpuscular Volume 87 80-99 FL Mean Corpuscular Hemoglobin 27 25-34 PG Mean Corpuscular Hemoglobin Concent 31 L 32-36 G/DL Red Cell Distribution Width 15.2 H 10.0-14.5 % Platelet Count 235 130-400 10^3/uL Mean Platelet Volume 10.3 7.4-10.4 FL Neutrophils (%) (Auto) 58 42-75 % Lymphocytes (%) (Auto) 32 12-44 % Monocytes (%) (Auto) 7 0-12 % Eosinophils (%) (Auto) 3 0-10 % Basophils (%) (Auto) 0 0-10 % Neutrophils # (Auto) 5.3 1.8-7.8 X 10^3 Lymphocytes # (Auto) 3.0 1.0-4.0 X 10^3 Monocytes # (Auto) 0.6 0.0-1.0 X 10^3 Eosinophils # (Auto) 0.3 0.0-0.3 10^3/uL Basophils # (Auto) 0.0 0.0-0.1 10^3/uL Sodium Level 142 135-145 MMOL/L Potassium Level 4.7 3.6-5.0 MMOL/L Chloride Level 110 H 98-107 MMOL/L Carbon Dioxide Level 15 L 21-32 MMOL/L Anion Gap 17 H 5-14 MMOL/L Blood Urea Nitrogen 27 H 7-18 MG/DL Creatinine 2.93 H 0.60-1.30 MG/DL Estimat Glomerular Filtration Rate 16 BUN/Creatinine Ratio 9 Glucose Level 124 H 70-105 MG/DL Calcium Level 8.8 8.5-10.1 MG/DL Corrected Calcium 9.0 8.5-10.1 MG/DL Total Bilirubin 0.2 0.1-1.0 MG/DL Aspartate Amino Transf (AST/SGOT) 10 5-34 U/L Alanine Aminotransferase (ALT/SGPT) 8 0-55 U/L Alkaline Phosphatase 144 H 40-136 U/L Total Protein 6.9 6.4-8.2 GM/DL Albumin 3.8 3.2-4.5 GM/DL Thyroid Stimulating Hormone (TSH) 1.97 0.35-4.94 UIU/ML Urine Color YELLOW Urine Clarity CLOUDY Urine pH 6.0 5-9 Urine Specific [place] 1.025 H 1.016-1.022 Urine Protein NEGATIVE NEGATIVE Urine Glucose (UA) NEGATIVE NEGATIVE Urine Ketones NEGATIVE NEGATIVE Urine Nitrite NEGATIVE NEGATIVE Urine Bilirubin NEGATIVE NEGATIVE Urine Urobilinogen 0.2 < = 1.0 MG/DL Urine Leukocyte Esterase 3+ H NEGATIVE Urine RBC (Auto) TRACE-I NEGATIVE Urine RBC 2-5 H /HPF Urine WBC TNTC H /HPF Urine Squamous Epithelial Cells 0-2 /HPF Urine Renal Epithelial Cells 0-2 /HPF Urine Crystals NONE /LPF Urine Bacteria FEW H /HPF Urine Casts NONE /LPF Urine Mucus NEGATIVE /LPF Urine Yeast MODERATE H /HPF Urine Culture Indicated YES My Orders Orders - ROSSI SINGLETON BOBBIN WINDER Cbc With Automated Diff (12/20/19 15:18) Thyroid Stimulating Hormone (12/20/19 15:18) Free T4 (Free Thyroxine) (12/20/19 15:18) Comprehensive Metabolic Panel (12/20/19 15:18) Ua Culture If Indicated (12/20/19 15:18) Urine Culture (12/20/19 15:20) Ceftriaxone For Iv Use (Rocephin For I (12/20/19 16:00) Ns Iv 500 Ml (Sodium Chloride 0.9%) (12/20/19 16:15) Vital Signs/I&O 12/20/19 15:15 Temp 36.7 Pulse 83 Resp 18 B/P (MAP) 158/77 (104) Capillary Refill : Departure Impression Primary Impression: UTI (urinary tract infection) Qualified Codes: N39.0 - Urinary tract infection, site not specified Additional Impressions: Depression Qualified Codes: F32.9 - Major depressive disorder, single episode, unspecified REDD (acute kidney injury) Disposition: HOME, SELF-CARE Condition: Stable Departure-Patient Inst. Decision time for Depature: 15:52 Referrals: SUSAN LANGSTON MD (PCP/Family) Primary Care Physician Patient Instructions: Urinary Tract Infections in Adults Add. Discharge Instructions: Call dr Langston for an appointment for follow up. Antibiotics as directed. Return to ER for any worsening. Start the oral antibiotics tomorrow. Scripts Cefuroxime Axetil (Cefuroxime) 500 Mg Tablet 500 MG PO BID, #10 TAB Prov: ROSSI SINGLETON APRN 12/20/19 Copy Copies To 1: SUSAN LANGSTON MD, PETER J APRN Dec 20, 2019 15:23
[2019-12-20 15:34] LABS: BILIRUBIN,URINE NEGATIVE (NEGATIVE); CLARITY,URINE CLOUDY; COLOR,URINE YELLOW; GLUCOSE, URINE (UA) NEGATIVE (NEGATIVE); KETONES,URINE NEGATIVE (NEGATIVE); LEUKOCYTE ESTERASE ,URINE 3+ (NEGATIVE); NITRITE,URINE NEGATIVE (NEGATIVE); PROTEIN,URINE NEGATIVE (NEGATIVE)
[2019-12-20 15:34] LABS: BASOPHILS % (AUTO) 0 % (0-10); EOSINOPHILS # (AUTO) 0.3 10^3/uL (0.0-0.3); EOSINOPHILS % (AUTO) 3 % (0-10); HEMATOCRIT 41 % (35-52); HEMOGLOBIN 12.5 G/DL (11.5-16.0); LYMPHOCYTES % (AUTO) 32 % (12-44); MEAN CORPUSCULAR HEMOGLOBIN 27 PG (25-34); MEAN CORPUSCULAR HGB CONC 31 G/DL (32-36); MEAN CORPUSCULAR VOLUME 87 FL (80-99); MEAN PLATELET VOLUME 10.3 FL (7.4-10.4); MONOCYTES # (AUTO) 0.6 X 10^3 (0.0-1.0); MONOCYTES % (AUTO) 7 % (0-12); NEUTROPHILS # (AUTO) 5.3 X 10^3 (1.8-7.8); NEUTROPHILS % (AUTO) 58 % (42-75); PLATELET COUNT 235 10^3/uL (130-400); RED CELL DISTRIBUTION WIDTH 15.2 % (10.0-14.5); WHITE BLOOD COUNT 9.2 10^3/uL (4.3-11.0)
--- NOTE | 2019-12-20 15:36 | NUR ---
SEE LIST FOR CURRENT MEDS
[2019-12-20 15:45] LABS: ALBUMIN 3.8 GM/DL (3.2-4.5); POTASSIUM 4.7 MMOL/L (3.6-5.0)
[2019-12-20 15:46] LABS: BACTERIA,URINE FEW /HPF; WBC,URINE TNTC /HPF
[2019-12-20 15:46] LABS: CALCIUM 8.8 MG/DL (8.5-10.1)
[2019-12-20 15:47] LABS: TOTAL PROTEIN 6.9 GM/DL (6.4-8.2)
[2019-12-20 15:47] LABS: RENAL EPITHELIAL CELLS,URINE 0-2 /HPF; SQUAMOUS EPITHELIAL CELL,UR 0-2 /HPF; YEAST,URINE MODERATE /HPF
[2019-12-20 15:49] LABS: BILIRUBIN,TOTAL 0.2 MG/DL (0.1-1.0)
[2019-12-20 15:51] LABS: CREATININE SERUM 2.93 MG/DL (0.60-1.30)
[2019-12-20] MEDS ORDERED: CEFU500T63 PO (15:53)
[2019-12-20] MEDS ORDERED: cefTRIAXone FOR IV USE 1,000 MG in WATER (STERILE) FOR INJECTION 10 ML IV ONE (16:00)
[2019-12-20] MEDS ORDERED: NS IV 500 ML 500 ML IV SCH (16:15)
[2019-12-20 16:18] LABS: FREE T4 (FREE THYROXINE) 0.92 NG/DL (0.70-1.48)
[2019-12-20 16:57] VITALS: BP 143/80
--- NOTE | 2019-12-20 16:57 | NUR ---
CALLED [facility] TO TRANSPORT PT BACK TO FACILITY
--- NOTE | 2019-12-20 16:59 | NUR ---
FAMILY NOTIFIED OF PT RETURNING TO [facility]
[2019-12-20] MEDS ORDERED: ACETAMINOPHEN 325 MG TABLET PO ONE (17:30)
== END 2019-12-20 17:22 ==
LOC: EDUNIT# 15:11 → ER 15:13
DX: N39.0 Urinary tract infection, site not specified (principal); K52.9 Noninfective gastroenteritis and colitis, unspecified; K59.09 Other constipation; K21.9 Gastro-esophageal reflux disease without esophagitis; M19.90 Unspecified osteoarthritis, unspecified site; M54.9 Dorsalgia, unspecified; E03.9 Hypothyroidism, unspecified; F41.9 Anxiety disorder, unspecified; F31.9 Bipolar disorder, unspecified; Z79.890 Hormone replacement therapy; Z79.899 Other long term (current) drug therapy; Z90.81 Acquired absence of spleen; Z88.2 Allergy status to sulfonamides; Z88.5 Allergy status to narcotic agent
CPT/HCPCS: 36415; 80053; 81000; 84439; 84443; 85025; 87077; 87088; 87186; 93005

== ENCOUNTER 2020-07-03 10:28 | Emergency (ER) | payer MEDICARE, MEDICAID ==
[~2020-07-03] VITALS: Ht 167 cm; Wt 68.0 kg
[~2020-07-03 10:28] MED LIST changes: -CALC600T12 PO; +CEFU500T63 PO; +CLC600T PO
[2020-07-03 10:55] LABS: BASOPHILS % (AUTO) 0 % (0-10); EOSINOPHILS % (AUTO) 0 % (0-10); HEMATOCRIT 41 % (35-52); HEMOGLOBIN 12.8 g/dL (11.5-16.0); LYMPHOCYTES # (AUTO) 1.2 10^3/uL (1.0-4.0); LYMPHOCYTES % (AUTO) 9 % (12-44); MEAN CORPUSCULAR HEMOGLOBIN 28 pg (25-34); MEAN CORPUSCULAR HGB CONC 31 g/dL (32-36); MEAN CORPUSCULAR VOLUME 90 fL (80-99); MEAN PLATELET VOLUME 10.8 fL (9.0-12.2); MONOCYTES % (AUTO) 7 % (0-12); NEUTROPHILS # (AUTO) 11.4 10^3/uL (1.8-7.8); NEUTROPHILS % (AUTO) 83 % (42-75); PLATELET COUNT 252 10^3/uL (130-400); WHITE BLOOD COUNT 13.7 10^3/uL (4.3-11.0)
[2020-07-03 10:59] LABS: ALBUMIN 3.8 GM/DL (3.2-4.5)
[2020-07-03 11:00] LABS: POTASSIUM 5.3 MMOL/L (3.6-5.0)
[2020-07-03] MEDS ORDERED: NS IV 1000 ML 1,000 ML IV SCH (11:00)
[2020-07-03 11:01] LABS: CALCIUM 9.4 MG/DL (8.5-10.1)
[2020-07-03 11:02] LABS: TOTAL PROTEIN 6.9 GM/DL (6.4-8.2)
[2020-07-03 11:04] LABS: BILIRUBIN,TOTAL 0.5 MG/DL (0.1-1.0)
[2020-07-03 11:06] LABS: CREATININE SERUM 2.96 MG/DL (0.60-1.30)
[2020-07-03 11:09] LABS: MAGNESIUM 1.9 MG/DL (1.6-2.4)
[2020-07-03 11:18] LABS: BILIRUBIN,URINE NEGATIVE (NEGATIVE); CLARITY,URINE SL CLOUDY; COLOR,URINE YELLOW; GLUCOSE, URINE (UA) NEGATIVE (NEGATIVE); KETONES,URINE NEGATIVE (NEGATIVE); LEUKOCYTE ESTERASE ,URINE 1+ (NEGATIVE); NITRITE,URINE NEGATIVE (NEGATIVE); PH,URINE 5.5 (5-9); PROTEIN,URINE TRACE (NEGATIVE)
[2020-07-03 11:25] LABS: BACTERIA,URINE FEW /HPF; WBC,URINE >100 /HPF
[2020-07-03 11:30] LABS: FREE T4 (FREE THYROXINE) 1.29 NG/DL (0.70-1.48)
--- NOTE | 2020-07-03 12:47 | Diagnostic Imaging Report ---
PROCEDURE: CT head and CT cervical spine without contrast. TECHNIQUE: Multiple contiguous axial images were obtained through the brain and cervical spine without the use of intravenous contrast. Sagittal and coronal reformations through the cervical spine were then performed. Auto Exposure Controls were utilized during the CT exam to meet ALARA standards for radiation dose reduction. INDICATION: Increased confusion. Scalp contusion. Head and neck pain. COMPARISON: 07/22/2019. FINDINGS: CT head: No large acute territorial ischemia, mass, or hemorrhage. There is new chronic appearing subdural hematoma along the right convexity overlying the right frontal lobe. No midline shift or mass effect. Decreased attenuation is seen in the periventricular and subcortical white matter. The ventricles and cortical sulci are prominent. The basilar cisterns are patent and unremarkable. The calvarium is intact. The visualized paranasal sinuses are clear. CT cervical spine: No acute fracture or dislocation is seen in the cervical spine. No focal osseous lesions. There is reversal of the normal lordotic curvature centered at the C4-C5 level. Vertebral body heights are well-maintained. The craniocervical junction is well-maintained. Moderate to severe degenerative changes are seen in the cervical spine with disc osteophyte complexes and uncovertebral arthropathy. Soft tissues of the neck are unremarkable. IMPRESSION: 1. 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 No midline shift or mass effect. 2. No acute hemorrhage or focal intra-axial mass. No CT evidence of large acute territorial ischemia. 3. No acute fracture or dislocation in the cervical spine. 4. Generalized parenchymal volume loss with chronic microvascular disease. Dictated by: Dictated on workstation # [id number]
--- NOTE | 2020-07-03 13:39 | ED General ---
General Chief Complaint: Altered Mental Status Stated Complaint: UTI Nursing Triage Note: pt presents to ed from [facility] via ems for increased confusion, decreased appetite, and hallucinations. [facility] staff reports pt is currently on levaquin for UTI. Bruising noted to r upper forehead. Pt unsure if she had a recent fall. Nursing Sepsis Screen: No Definite Risk Source of Information: Patient, EMS, Residential Records History of Present Illness Date Seen by Provider: Jul 03, 2020 Time Seen by Provider: 10:30 Initial Comments This 79-year-old woman presents to the emergency room with confusion, decreased functionality, decreased appetite, and hallucinations. She is from [facility]. She is normally ambulatory with a walker but has not been able to ambulate with a walker today. She was recently diagnosed with urinary tract infection and was started on Levaquin. Urine culture results were reviewed by phone with Dr. Langston's office. She grew out Enterococcus and Aerococcus species. Patient also seems to be more tremulous than normal. On exam it is noted that she has old bruising to the right forehead. This reportedly was noticed a few days ago by staff but already appeared old at that time. No acute treatment was sought. Patient denies any pain or feeling ill in any way. She does state that this is "the end of life" for her. Allergies and Home Medications Allergies Coded Allergies: codeine (Unverified Allergy, Mild, 10/05/08) NSAIDS (Non-Steroidal Anti-Inflamma (Verified Allergy, Unknown, 07/03/20) Sulfa (Sulfonamide Antibiotics) (Unverified Allergy, Unknown, 01/16/14) sulfamethoxazole (Verified Allergy, Unknown, 07/03/20) trimethoprim (Verified Allergy, Unknown, 07/03/20) Uncoded Allergies: iv dye (Allergy, Unknown, 07/03/20) Home Medications Acetaminophen 500 Mg Tablet, 500-1,000 MG PO EVERY 4-6 HOURS PRN for PAIN-MILD (1-4), (Reported) Amoxicillin/Potassium Clav 1 Each Tablet, 1 EACH PO BID Prescribed by: SUSAN LANGSTON on 06/22/19 0857 Bupropion HCl 200 Mg Tablet.er, 200 MG PO BID, (Reported) Calcium Carbonate 600 Mg Tablet, 600 MG PO DAILY, (Reported) Cefuroxime Axetil 500 Mg Tablet, 500 MG PO BID Prescribed by: ROSSI SINGLETON on 12/20/19 1553 Cholecalciferol (Vitamin D3) 5,000 Unit Capsule, 5,000 UNIT PO DAILY, (Reported) Cyanocobalamin 1,000 Mcg/Ml Inj, 1,000 MCG IM MONTHLY ON THE , (Reported) Cyanocobalamin (Vitamin B-12) 1,000 Mcg Tab.subl, 1,000 MCG SL DAILY, (Reported) Fluvoxamine Maleate 100 Mg Tablet, 100 MG PO DAILY, (Reported) Fluvoxamine Maleate 50 Mg Tablet, 50 MG PO HS, (Reported) L. Acidophilus/Bulgaricus 1 Each Tablet, 1 TAB PO UD THREE TIMES DAILY X 1 WEEK THEN DAILY THEREAFTER Prescribed by: SUSAN LANGSTON on 06/22/19 0857 Levothyroxine Sodium 88 Mcg Tablet, 88 MCG PO DAILY, (Reported) Losartan Potassium 25 Mg Tablet, 25 MG PO HS, (Reported) Memantine HCl 28 Mg Cap.spr.24, 28 MG PO DAILY, (Reported) Metoprolol Tartrate 25 Mg Tablet, 37.5 MG PO BID, (Reported) TAKES 1 & 1/2 (25MG) TABLETS Mirtazapine 15 Mg Tablet, 15 MG PO HS, (Reported) Omeprazole 20 Mg Capsule.dr, 20 MG PO HS, (Reported) Potassium Chloride 20 Meq Tab.er.prt, 20 MEQ PO DAILY, (Reported) Quetiapine Fumarate 25 Mg Tablet, 25 MG PO HS, (Reported) Quetiapine Fumarate 25 Mg Tablet, 12.5 MG PO 0800,1400, (Reported) TAKES 1/2 (25MG) TABLET Simvastatin 10 Mg Tablet, 10 MG PO HS, (Reported) Sucralfate 1 Gm Tablet, 1 GM PO UD PRN for STOMACH UPSET, (Reported) Trimethoprim 100 Mg Tablet, 100 MG PO DAILY DO NOT RESTART UNTIL 06/28/2019 Prescribed by: SUSAN LANGSTON on 06/22/19 0857 Patient Home Medication List Home Medication List Reviewed: Yes Review of Systems Review of Systems Constitutional: no symptoms reported EENTM: no symptoms reported Respiratory: no symptoms reported Cardiovascular: no symptoms reported Gastrointestinal: no symptoms reported Genitourinary: see HPI : No Musculoskeletal: no symptoms reported Skin: see HPI Psychiatric/Neurological: See HPI Hematologic/Lymphatic: No Symptoms Reported Immunological/Allergic: no symptoms reported Past Bxljabm-Tzchyn-Ftdzqi Hx Past Med/Social Hx: Reviewed Nursing Past Med/Soc Hx Patient Social History Alcohol Use: Denies Use Smoking Status: Unknown if Ever Smoked Type Used: Cigarettes 2nd Hand Smoke Exposure: No Recent Infectious Disease Expo: No Recent Hopitalizations: No Immunizations Up To Date Tetanus Booster (TDap): Unknown Date of Influenza Vaccine: Mar 16, 2019 Seasonal Allergies Seasonal Allergies: Yes Past Medical History Surgeries: Yes (EGD/COLONOSCOPIES, BACK SURG;splenectomy) Breast, Gallbladder, Hysterectomy, Orthopedic Respiratory: No Cardiac: Yes High Cholesterol, Hypertension Neurological: No : No Reproductive Disorders: Yes Female Reproductive Disorders: Denies Sexually Transmitted Disease: No HIV/AIDS: No Genitourinary: Yes Bladder Infection Gastrointestinal: Yes Colitis, Gastroesophageal Reflux, Gall Bladder Disease Musculoskeletal: Yes (CHRONIC GENERALIZED PAIN) Arthritis, Back Injury, Chronic Back Pain Endocrine: Yes Hypothyroidsim Loss of Vision: Bilateral Hearing Impairment: Hard of Hearing Cancer: No Psychosocial: Yes Sleep Difficulties, Anxiety, Bipolar, Depression Integumentary: No Blood Disorders: No Adverse Reaction/Blood Tranf: No Family Medical History Alcoholism 19 FATHER G8 BROTHER CANC 19 MOTHER FH: cancer Cancer, Hypertension Physical Exam Vital Signs Vital Signs - First Documented 07/03/20 10:35 Temp 35.5 Pulse 83 Resp 16 B/P (MAP) 130/103 (112) Pulse Ox 94 Capillary Refill : Less Than 3 Seconds Height, Weight, BMI Height: 5'4.00" Weight: 166lbs. 9.0oz. 75.073215iu; 24.00 BMI Method: General Appearance: No Apparent Distress, WD/WN HEENT: PERRL/EOMI, Other (Facial bruising with raised contusion of the right forehead. 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 Norm as Tested, Other (Confused conversation) Skin: Normal Color, Warm/Dry, Ecchymosis Progress/Results/Core Measures Suspected Sepsis Recent Fever Within 48 Hours: No Infection Criteria Present: Documented Infection New/Unexplained Altered Menta: Yes Sepsis Screen: No Definite Risk SIRS Temperature: Pulse: 83 Respiratory Rate: 16 Laboratory Tests 07/03/20 10:32: White Blood Count 13.7H Blood Pressure 130 /103 Mean: 112 Laboratory Tests 07/03/20 10:32: Creatinine 2.96H, Platelet Count 252, Total Bilirubin 0.5 Results/Orders Lab Results Laboratory Tests Test 07/03/20 10:32 07/03/20 11:13 Range/Units White Blood Count 13.7 H 4.3-11.0 10^3/uL Red Blood Count 4.54 3.80-5.11 10^6/uL Hemoglobin 12.8 11.5-16.0 g/dL Hematocrit 41 35-52 % Mean Corpuscular Volume 90 80-99 fL Mean Corpuscular Hemoglobin 28 25-34 pg Mean Corpuscular Hemoglobin Concent 31 L 32-36 g/dL Red Cell Distribution Width 15.2 H 10.0-14.5 % Platelet Count 252 130-400 10^3/uL Mean Platelet Volume 10.8 9.0-12.2 fL Immature Granulocyte % (Auto) 1 % Neutrophils (%) (Auto) 83 H 42-75 % Lymphocytes (%) (Auto) 9 L 12-44 % Monocytes (%) (Auto) 7 0-12 % Eosinophils (%) (Auto) 0 0-10 % Basophils (%) (Auto) 0 0-10 % Neutrophils # (Auto) 11.4 H 1.8-7.8 10^3/uL Lymphocytes # (Auto) 1.2 1.0-4.0 10^3/uL Monocytes # (Auto) 1.0 0.0-1.0 10^3/uL Eosinophils # (Auto) 0.0 0.0-0.3 10^3/uL Basophils # (Auto) 0.0 0.0-0.1 10^3/uL Immature Granulocyte # (Auto) 0.1 0.0-0.1 10^3/uL Sodium Level 141 135-145 MMOL/L Potassium Level 5.3 H 3.6-5.0 MMOL/L Chloride Level 110 H 98-107 MMOL/L Carbon Dioxide Level 20 L 21-32 MMOL/L Anion Gap 11 5-14 MMOL/L Blood Urea Nitrogen 47 H 7-18 MG/DL Creatinine 2.96 H 0.60-1.30 MG/DL Estimat Glomerular Filtration Rate 15 BUN/Creatinine Ratio 16 Glucose Level 110 H 70-105 MG/DL Calcium Level 9.4 8.5-10.1 MG/DL Corrected Calcium 9.6 8.5-10.1 MG/DL Magnesium Level 1.9 1.6-2.4 MG/DL Total Bilirubin 0.5 0.1-1.0 MG/DL Aspartate Amino Transf (AST/SGOT) 16 5-34 U/L Alanine Aminotransferase (ALT/SGPT) 11 0-55 U/L Alkaline Phosphatase 125 40-136 U/L C-Reactive Protein High Sensitivity 1.26 H 0.00-0.50 MG/DL Total Protein 6.9 6.4-8.2 GM/DL Albumin 3.8 3.2-4.5 GM/DL Thyroid Stimulating Hormone (TSH) 1.66 0.35-4.94 UIU/ML Free Thyroxine 1.29 0.70-1.48 NG/DL Urine Color YELLOW Urine Clarity SL CLOUDY Urine pH 5.5 5-9 Urine Specific [place] >=1.030 1.016-1.022 Urine Protein TRACE H NEGATIVE Urine Glucose (UA) NEGATIVE NEGATIVE Urine Ketones NEGATIVE NEGATIVE Urine Nitrite NEGATIVE NEGATIVE Urine Bilirubin NEGATIVE NEGATIVE Urine Urobilinogen 0.2 < = 1.0 MG/DL Urine Leukocyte Esterase 1+ H NEGATIVE Urine RBC (Auto) NEGATIVE NEGATIVE Urine RBC NONE /HPF Urine WBC >100 H /HPF Urine Squamous Epithelial Cells 10-25 H /HPF Urine Crystals NONE /LPF Urine Bacteria FEW H /HPF Urine Casts NONE /LPF Urine Mucus NEGATIVE /LPF Urine Culture Indicated YES My Orders Orders - BENJY TIRADO MD Cbc With Automated Diff (07/03/20 10:48) Comprehensive Metabolic Panel (07/03/20 10:48) Hs C Reactive Protein (07/03/20 10:48) Magnesium (07/03/20 10:48) Ua Culture If Indicated (07/03/20 10:48) Thyroid Stimulating Hormone (07/03/20 10:48) Free T4 (Free Thyroxine) (07/03/20 10:48) Ed Iv/Invasive Line Start (07/03/20 10:48) Ns Iv 1000 Ml (Sodium Chloride 0.9%) (07/03/20 11:00) Ct Head/Cervical Spine Wo (07/03/20 10:52) Urine Culture (07/03/20 11:13) Ampicillin For Iv Use (Ampicillin For (07/03/20 13:45) Medications Given in ED Current Medications Medications Dose Ordered Sig/Shelli Route Start Time Stop Time Status Last Admin Dose Admin Ampicillin Sodium 2000 mg/Sterile Water 14.8 ml @ 60 mls/hr ONCE ONCE IV 07/03/20 13:45 07/03/20 13:59 DC 07/03/20 14:19 60 MLS/HR Vital Signs/I&O 07/03/20 10:35 Temp 35.5 Pulse 83 Resp 16 B/P (MAP) 130/103 (112) Pulse Ox 94 Capillary Refill : Less Than 3 Seconds Blood Pressure Mean: 112 Progress Note : Time: 14:28 Progress Note Patient still appears to have pyuria by urinalysis. CT of the head and C-spine demonstrated an old or stable subdural hematoma. This could correlate with her fall about a week ago. No interventions are necessary for this injury at this time. I discussed the situation with Dr. Langston. She would like to treat with ampicillin here in the ER based on culture results and follow that with an amoxicillin prescription that she will provide. Patient received a liter of IV normal saline. Diagnostic Imaging Diagonstic Imaging: CT Plain Films/CT/US/NM/MRI: c-spine, head Comments CT head and cervical spine viewed by me and report reviewed. See report below: NAME: HAY ANDREA [facility] REC#: [id number] PT STATUS: REG ER : 1940 PHYSICIAN: BENJY TIRADO MD ADMIT DATE: 07/03/20/ER Anabela gned Date of Exam:07/03/20 CT HEAD/CERVICAL SPINE WO PROCEDURE: CT head and CT cervical spine without contrast. TECHNIQUE: Multiple contiguous axial images were obtained through the brain and cervical spine without the use of intravenous contrast. Sagittal and coronal reformations through the cervical spine were then performed. Auto Exposure Controls were utilized during the CT exam to meet ALARA standards for radiation dose reduction. INDICATION: Increased confusion. Scalp contusion. Head and neck pain. COMPARISON: 07/22/2019. FINDINGS: CT head: No large acute territorial ischemia, mass, or hemorrhage. There is new chronic appearing subdural hematoma along the right convexity overlying the right frontal lobe. No midline shift or mass effect. Decreased attenuation is seen in the periventricular and subcortical white matter. The ventricles and cortical sulci are prominent. The basilar cisterns are patent and unremarkable. The calvarium is intact. The visualized paranasal sinuses are clear. CT cervical spine: No acute fracture or dislocation is seen in the cervical spine. No focal osseous lesions. There is reversal of the normal lordotic curvature centered at the C4-C5 level. Vertebral body heights are well-maintained. The craniocervical junction is well-maintained. Moderate to severe degenerative changes are seen in the cervical spine with disc osteophyte complexes and uncovertebral arthropathy. Soft tissues of the neck are unremarkable. IMPRESSION: 1. 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 No midline shift or mass effect. 2. No acute hemorrhage or focal intra-axial mass. No CT evidence of large acute territorial ischemia. 3. No acute fracture or dislocation in the cervical spine. 4. Generalized parenchymal volume loss with chronic microvascular disease. Dictated by: Dictated on workstation # [id number] Dict: 07/03/20 1239 Trans: 07/03/20 1251 [facility] [id number] Interpreted by: AMBROSIO LEOS DO Electronically signed by: AMBROSIO LEOS DO 07/03/20 1251 Departure Impression Primary Impression: Subdural hematoma Additional Impressions: Urinary tract infection Qualified Codes: N39.0 - Urinary tract infection, site not specified Altered mental status Qualified Codes: R41.82 - Altered mental status, unspecified Tremor Fall on same level Qualified Codes: W18.30XA - Fall on same level, unspecified, initial encounter Disposition: HOME, SELF-CARE Condition: Improved Departure-Patient Inst. Decision time for Depature: 14:01 Referrals: SUSAN LANGSTON MD (PCP/Family) Primary Care Physician Patient Instructions: Subdural Hematoma, Urinary Tract Infection, Adult (DC) Add. Discharge Instructions: See orders for new antibiotics from Dr. Langston. Stop Levaquin (levofloxacin). Assist patient with ambulation and transfers. Encourage plenty of clear liquids. All discharge instructions reviewed with patient and/or family. Voiced understanding. Copy Copies To 1: SUSAN LANGSTON MD, JOSHUA T MD Jul 03, 2020 13:38
[2020-07-03] MEDS ORDERED: AMPICILLIN FOR IV USE 2,000 MG in WATER (STERILE) FOR INJECTION 14.8 ML IV ONE (13:45)
--- NOTE | 2020-07-03 14:39 | NUR ---
pt daughter updated with pt progress and plan of care at this time.
--- NOTE | 2020-07-03 14:55 | NUR ---
[facility] notified of pt progress to discharge and plans made for arrangement of transport home.
[2020-07-03 15:14] VITALS: BP 126/75
== END 2020-07-03 15:14 | disposition home or self-care (01) ==
LOC: EDUNIT# 10:28 → ER 10:29
DX: S00.83XA Contusion of other part of head, initial encounter (principal); N39.0 Urinary tract infection, site not specified; R41.82 Altered mental status, unspecified; R25.1 Tremor, unspecified; I10 Essential (primary) hypertension; E03.9 Hypothyroidism, unspecified; E78.00 Pure hypercholesterolemia, unspecified; K21.9 Gastro-esophageal reflux disease without esophagitis; F31.9 Bipolar disorder, unspecified; Z88.2 Allergy status to sulfonamides; Z88.5 Allergy status to narcotic agent; Z88.6 Allergy status to analgesic agent; Z88.1 Allergy status to other antibiotic agents; Z91.041 Radiographic dye allergy status; Z80.9 Family history of malignant neoplasm, unspecified; Z82.49 Family history of ischemic heart disease and other diseases of the circulatory system; Z79.890 Hormone replacement therapy; W18.30XA Fall on same level, unspecified, initial encounter
CPT/HCPCS: 36415; 51701; 70450; 72125; 80053; 81000; 83735; 84439; 84443; 85025; 86141; 87088

== ENCOUNTER 2020-08-07 08:15 | Emergency (ER) | payer MEDICARE, MEDICAID ==
[~2020-08-07] VITALS: Ht 167 cm; Wt 68.0 kg
[~2020-08-07 08:15] MED LIST changes: +CIPR500T5 PO; +QUET25TA34 PO; -QUET25TA73 PO
--- NOTE | 2020-08-07 08:49 | ED Fall/Injury ---
General Chief Complaint: Trauma-Non Activation Stated Complaint: FELL Nursing Triage Note: UNWITNESSED FALL Source: patient, EMS Exam Limitations: clinical condition (Dementia, hard of hearing) History of Present Illness Date Seen by Provider: Aug 07, 2020 Time Seen by Provider: 08:15 Initial Comments Patient presents ER by EMS from assisted living with chief complaint that she had an unwitnessed fall and a laceration on her right index finger and large hematoma over her right eyebrow. Patient denies any pain. The patient is not on blood thinners. She is at baseline per nursing staff in terms of orientation. She is quite hard of hearing. She is denying any nausea shortness of breath cough fever. She is on treatment for a UTI presently. Allergies and Home Medications Allergies Coded Allergies: codeine (Unverified Allergy, Mild, 10/05/08) NSAIDS (Non-Steroidal Anti-Inflamma (Verified Allergy, Unknown, 07/03/20) Sulfa (Sulfonamide Antibiotics) (Unverified Allergy, Unknown, 01/16/14) sulfamethoxazole (Verified Allergy, Unknown, 07/03/20) trimethoprim (Verified Allergy, Unknown, 07/03/20) Uncoded Allergies: iv dye (Allergy, Unknown, 07/03/20) Home Medications Acetaminophen 500 Mg Tablet, 500-1,000 MG PO EVERY 4-6 HOURS PRN for PAIN-MILD (1-4), (Reported) Amoxicillin/Potassium Clav 1 Each Tablet, 1 EACH PO BID Prescribed by: SUSAN MOTLEY on 06/22/19 0857 Bupropion HCl 200 Mg Tablet.er, 200 MG PO BID, (Reported) Calcium Carbonate 600 Mg Tablet, 600 MG PO DAILY, (Reported) Cefuroxime Axetil 500 Mg Tablet, 500 MG PO BID Prescribed by: ROSSI SINGLETON on 12/20/19 1853 Cholecalciferol (Vitamin D3) 5,000 Unit Capsule, 5,000 UNIT PO DAILY, (Reported) Cyanocobalamin 1,000 Mcg/Ml Inj, 1,000 MCG IM MONTHLY ON THE , (Reported) Cyanocobalamin (Vitamin B-12) 1,000 Mcg Tab.subl, 1,000 MCG SL DAILY, (Reported) Fluvoxamine Maleate 100 Mg Tablet, 100 MG PO DAILY, (Reported) Fluvoxamine Maleate 50 Mg Tablet, 50 MG PO HS, (Reported) L. Acidophilus/Bulgaricus 1 Each Tablet, 1 TAB PO UD THREE TIMES DAILY X 1 WEEK THEN DAILY THEREAFTER Prescribed by: SUSAN MOTLEY on 06/22/19 0857 Levothyroxine Sodium 88 Mcg Tablet, 88 MCG PO DAILY, (Reported) Losartan Potassium 25 Mg Tablet, 25 MG PO HS, (Reported) Memantine HCl 28 Mg Cap.spr.24, 28 MG PO DAILY, (Reported) Metoprolol Tartrate 25 Mg Tablet, 37.5 MG PO BID, (Reported) TAKES 1 & 1/2 (25MG) TABLETS Mirtazapine 15 Mg Tablet, 15 MG PO HS, (Reported) Omeprazole 20 Mg Capsule.dr, 20 MG PO HS, (Reported) Potassium Chloride 20 Meq Tab.er.prt, 20 MEQ PO DAILY, (Reported) Quetiapine Fumarate 25 Mg Tablet, 25 MG PO HS, (Reported) Quetiapine Fumarate 25 Mg Tablet, 12.5 MG PO 0800,1400, (Reported) TAKES 1/2 (25MG) TABLET Simvastatin 10 Mg Tablet, 10 MG PO HS, (Reported) Sucralfate 1 Gm Tablet, 1 GM PO UD PRN for STOMACH UPSET, (Reported) Trimethoprim 100 Mg Tablet, 100 MG PO DAILY DO NOT RESTART UNTIL 06/28/2019 Prescribed by: SUSAN MOTLEY on 06/22/19 0857 Patient Home Medication List Home Medication List Reviewed: Yes Review of Systems Review of Systems Constitutional: No chills, No diaphoresis Eyes: Denies Blindness, Denies Blurred Vision Ears, Nose, Mouth, Throat: denies ear pain, denies ear discharge Respiratory: No cough, No short of breath Cardiovascular: No chest pain, No palpitations Gastrointestinal: No abdominal pain, No nausea, No vomiting Genitourinary: No discharge, No dysuria Musculoskeletal: see HPI Skin: see HPI All Other Systems Reviewed Negative Unless Noted: Yes Past Trprblo-Agbxbu-Kyxyfe Hx Patient Social History Alcohol Use: Denies Use Smoking Status: Current Everyday Smoker Type Used: Cigarettes 2nd Hand Smoke Exposure: No Recent Hopitalizations: No Immunizations Up To Date Tetanus Booster (TDap): Unknown Date of Influenza Vaccine: Mar 16, 2019 Seasonal Allergies Seasonal Allergies: Yes Past Medical History Surgeries: Yes (EGD/COLONOSCOPIES, BACK SURG;splenectomy) Breast, Gallbladder, Hysterectomy, Orthopedic Respiratory: No Cardiac: Yes High Cholesterol, Hypertension Neurological: No Reproductive Disorders: Yes Female Reproductive Disorders: Denies Sexually Transmitted Disease: No HIV/AIDS: No Genitourinary: Yes Bladder Infection Gastrointestinal: Yes Colitis, Gastroesophageal Reflux, Gall Bladder Disease Musculoskeletal: Yes (CHRONIC GENERALIZED PAIN) Arthritis, Back Injury, Chronic Back Pain Endocrine: Yes Hypothyroidsim Loss of Vision: Bilateral Hearing Impairment: Hard of Hearing Cancer: No Psychosocial: Yes Sleep Difficulties, Anxiety, Bipolar, Depression Integumentary: No Blood Disorders: No Adverse Reaction/Blood Tranf: No Family Medical History Alcoholism 19 FATHER G8 BROTHER CANC 19 MOTHER FH: cancer Cancer, Hypertension Physical Exam Vital Signs Vital Signs - First Documented 08/07/20 08:15 Temp 36.2 Pulse 81 Resp 20 B/P (MAP) 160/71 (100) Pulse Ox 94 O2 Delivery Room Air Capillary Refill : Height, Weight, BMI Height: 5'4.00" Weight: 166lbs. 9.0oz. 75.250590hx; 24.00 BMI Method: General Appearance: WD/WN, no apparent distress HEENT: PERRL/EOMI, pharynx normal Neck: full range of motion, normal inspection Cardiovascular: normal peripheral pulses, regular rate, rhythm Respiratory: lungs clear, normal breath sounds, no respiratory distress, no accessory muscle use Peripheral Pulses: 2+ Radial Pulses (R), 2+ Radial Pulses (L) Gastrointestinal: normal bowel sounds, non tender, soft Neurologic/Psychiatric: alert, normal mood/affect, other (Person and place but not time or situation) Skin: other (Large 5 cm long by 3 cm wide hematoma over the right eyebrow. Laceration on the index finger in a J shape approximately 3 cm long on the pad of the right index finger.) Abebe Coma Score Best Eye Response: (4) Open Spontaneously Best Verbal Response: (5) Oriented Best Motor Response: (6) Obeys Commands [place] Total: 15 Procedures/Interventions Wound Location: Upper Extremities Other Wound Location Right index finger pad distal phalanx Wound Length (cm): 3 Wound's Depth, Shape: linear (Curvilinear), sub Q Wound Explored: no foreign body removed Irrigated w/ Saline (ccs): 200 Betadine Prep?: Yes (Chlorhexidine) Anesthesia: 1% Lidocaine Volume Anesthetic (ccs): 5 Suture: Ethlion Suture Size: 5-0 Number of Sutures: 5 Sterile Dressing Applied?: Yes Progress Wound was cleaned thoroughly using chlorhexidine and sterile saline and flushed. In the usual fashion we applied a nerve block of the digit and applied another couple cc into the pad of the finger to obtain adequate analgesia. Wound edges were reapproximated and closed using 5 simple interrupted sutures. Patient tolerated the procedure very well. Progress/Results/Core Measures Results/Orders My Orders Orders - GILLIAN PHILLIPS Ct Head/Cervical Spine Wo (08/07/20 08:26) Vital Signs/I&O 08/07/20 08:15 Temp 36.2 Pulse 81 Resp 20 B/P (MAP) 160/71 (100) Pulse Ox 94 O2 Delivery Room Air Progress Progress Note : Time: 08:47 Progress Note Cleaned and repaired the finger laceration. CT of the head and C-spine were ordered. Plan to put her on cefdinir which would cover for infection of the finger as well as UTI. Diagnostic Imaging Diagonstic Imaging: CT Plain Films/CT/US/NM/MRI: c-spine, head Comments NAME: HAY ANDREA [facility] REC#: [id number] PT STATUS: REG ER : 1940 PHYSICIAN: GILLIAN PHILLIPS MD ADMIT DATE: 08/07/20/ER Draft Date of Exam:08/07/20 CT HEAD/CERVICAL SPINE WO PROCEDURE: CT head and CT cervical spine without contrast. TECHNIQUE: Multiple contiguous axial images were obtained through the brain and cervical spine without the use of intravenous contrast. Sagittal and coronal reformations through the cervical spine were then performed. Auto Exposure Controls were utilized during the CT exam to meet ALARA standards for radiation dose reduction. INDICATION: Trauma, unwitnessed fall with a hematoma to the right forehead. COMPARISON: Correlation is made with prior CT from 07/03/2020. FINDINGS: CT HEAD: Prominence of the ventricles and sulci is again noted, consistent with cerebral atrophy. The chronic-appearing subdural along the right frontal convexity appears smaller on today's study. No acute intra-axial or extra-axial hemorrhage is identified. Cisterns are patent. There is some mucosal thickening of the maxillary sinuses bilaterally as well as the sphenoid sinus and ethmoid air cells. There is a hematoma in the right frontal scalp. IMPRESSION: 1. Right frontal scalp hematoma. 2. No acute intracranial process is detected. The chronic-appearing subdural along the right frontal convexity on prior exam does appear to be smaller. CT CERVICAL SPINE: Alignment is normal. There appears to be partial osseous fusion between the C4-C5 as well as C5-C6 and C6-C7 vertebral bodies. There is severe multilevel degenerative disc disease with variable disc space narrowing and marginal spurring. There is multilevel facet arthropathy. Prevertebral tissues are within normal limits. Odontoid appears to be intact. IMPRESSION: Cervical spondylosis. No acute bony abnormality is detected. Dictated on workstation # [id number] Dict: 08/07/20 0915 Trans: 08/07/20 0931 [id number] [id number] Interpreted by: UMA RAMIREZ MD Electronically signed by: Reviewed: Reviewed by Me Departure Impression Primary Impression: Fall on same level Qualified Codes: W18.30XA - Fall on same level, unspecified, initial encounter Additional Impression: Finger laceration Qualified Codes: S61.210A - Laceration without foreign body of right index finger without damage to nail, initial encounter Disposition: 01 HOME, SELF-CARE Condition: Improved Departure-Patient Inst. Decision time for Depature: 09:38 Referrals: SUSAN MOTLEY MD (PCP/Family) Primary Care Physician Patient Instructions: HEMATOMA, Laceration Repair With [place] (DC), Laceration Repair With Stitches (DC) Add. Discharge Instructions: Ice pack for 20 minutes every 2 hours while awake for swelling and pain on the hematoma over her right eyebrow. Tylenol and/or ibuprofen as necessary for pain. Keep the finger clean with regular soap and water at least daily and apply a thin layer of Vaseline or triple antibiotic ointment and replace the dressing daily or more frequently as necessary. Have the sutures out in 10 to 14 days by the nurse or you may return to the ER to have this done at no additional charge. Cefdinir 1 capsule twice a day for the next 7 days to prevent infection. Probiotics 1 tablet twice a day for the next 7 days to prevent diarrhea. All discharge instructions reviewed with patient and/or family. Voiced understanding. Scripts Cefdinir (Cefdinir) 300 Mg Capsule 300 MG PO BID for 7 Days, #14 CAP 0 Refills Prov: GILLIAN PHILLIPS 08/07/20 L.acidoph & Paracasei,B.lactis (Probiotic) 1 Each Capsule 1 EACH PO BID for 7 Days, #14 CAP 0 Refills Prov: GILLIAN PHILLIPS 08/07/20 Copy Copies To 1: SUSAN MOTLEY MD, TITUS J Aug 07, 2020 08:48
--- NOTE | 2020-08-07 09:31 | Diagnostic Imaging Report ---
PROCEDURE: CT head and CT cervical spine without contrast. TECHNIQUE: Multiple contiguous axial images were obtained through the brain and cervical spine without the use of intravenous contrast. Sagittal and coronal reformations through the cervical spine were then performed. Auto Exposure Controls were utilized during the CT exam to meet ALARA standards for radiation dose reduction. INDICATION: Trauma, unwitnessed fall with a hematoma to the right forehead. COMPARISON: Correlation is made with prior CT from 07/03/2020. FINDINGS: CT HEAD: Prominence of the ventricles and sulci is again noted, consistent with cerebral atrophy. The chronic-appearing subdural along the right frontal convexity appears smaller on today's study. No acute intra-axial or extra-axial hemorrhage is identified. Cisterns are patent. There is some mucosal thickening of the maxillary sinuses bilaterally as well as the sphenoid sinus and ethmoid air cells. There is a hematoma in the right frontal scalp. IMPRESSION: 1. Right frontal scalp hematoma. 2. No acute intracranial process is detected. The chronic-appearing subdural along the right frontal convexity on prior exam does appear to be smaller. CT CERVICAL SPINE: Alignment is normal. There appears to be partial osseous fusion between the C4-C5 as well as C5-C6 and C6-C7 vertebral bodies. There is severe multilevel degenerative disc disease with variable disc space narrowing and marginal spurring. There is multilevel facet arthropathy. Prevertebral tissues are within normal limits. Odontoid appears to be intact. IMPRESSION: Cervical spondylosis. No acute bony abnormality is detected. Dictated by: Dictated on workstation # [id number]
[2020-08-07] MEDS ORDERED: CEFD300C3 PO (09:40)
[2020-08-07] MEDS ORDERED: L.AC1CAP6 PO (09:40)
[2020-08-07 10:19] VITALS: BP 124/65
== END 2020-08-07 10:19 | disposition home or self-care (01) ==
LOC: EDUNIT# 08:24 → ER 08:26
DX: S61.210A Laceration without foreign body of right index finger without damage to nail, initial encounter (principal); S00.11XA Contusion of right eyelid and periocular area, initial encounter; F41.9 Anxiety disorder, unspecified; I10 Essential (primary) hypertension; K21.9 Gastro-esophageal reflux disease without esophagitis; E78.00 Pure hypercholesterolemia, unspecified; E03.9 Hypothyroidism, unspecified; F31.9 Bipolar disorder, unspecified; R40.2410 Glasgow coma scale score 13-15, unspecified time; F17.210 Nicotine dependence, cigarettes, uncomplicated; Z88.5 Allergy status to narcotic agent; Z88.6 Allergy status to analgesic agent; Z88.2 Allergy status to sulfonamides; Z88.1 Allergy status to other antibiotic agents; Z91.041 Radiographic dye allergy status; Z82.49 Family history of ischemic heart disease and other diseases of the circulatory system; Z80.9 Family history of malignant neoplasm, unspecified; Z79.890 Hormone replacement therapy; W18.30XA Fall on same level, unspecified, initial encounter
CPT/HCPCS: 12001; 70450; 72125

== ENCOUNTER → 2020-10-02 | Outpatient (CLI) | payer MEDICARE, MEDICAID ==
[~2020-10-02] MED LIST changes: +CEFD300C3 PO; +L.AC1CAP6 PO
--- NOTE | 2020-10-02 10:12 | Diagnostic Imaging Report ---
INDICATION: Nausea and vomiting. EXAMINATION: KUB at 9:55 AM. FINDINGS: There are degenerative changes in the lumbar spine. The patient has had a previous fusion of L4-L5. The gallbladder appears to be surgically absent. The bowel gas pattern is normal. There is a 5 mm calcification lateral to the L2 vertebra on the left which could be a ureteral calculus. IMPRESSION: Questionable left proximal ureteral calculus. No evidence of bowel obstruction. Dictated by: Dictated on workstation # [id number]
== END ==
LOC: RAD 09:41
PROVIDERS: ATTEND Nurse Practitioner Family
DX: R11.2 Nausea with vomiting, unspecified (principal)
CPT/HCPCS: 74018

== ENCOUNTER → 2020-10-03 | Outpatient (CLI) | payer MEDICARE, MEDICAID ==
[~2020-10-03] MED LIST changes: +NS IV 1000 ML 1,000 ML IV SCH; +NS IV 1000 ML 1,000 ML ONE
[2020-10-03 09:26] LABS: HEMOGLOBIN 15.2 g/dL (11.5-16.0); MEAN PLATELET VOLUME 9.5 fL (9.0-12.2)
[2020-10-03 09:44] LABS: ALBUMIN 3.3 GM/DL (3.2-4.5); BILIRUBIN,TOTAL 0.7 MG/DL (0.1-1.0); CALCIUM 9.1 MG/DL (8.5-10.1); CREATININE SERUM 1.27 MG/DL (0.60-1.30); POTASSIUM 3.1 MMOL/L (3.6-5.0); TOTAL PROTEIN 6.9 GM/DL (6.4-8.2)
[2020-10-03 10:20] VITALS: BP 138/68
== END ==
LOC: SDC 08:54
PROVIDERS: ATTEND Nurse Practitioner Family
DX: E86.0 Dehydration (principal)
CPT/HCPCS: 36415; 80053; 85027; 96360